=== PATIENT | male | born 1985 | race Two or more races ===

== ENCOUNTER 2020-04-15 17:30 | Emergency (ER) | payer SELFPAY ==
[~2020-04-15] VITALS: Ht 170.2 cm; Wt 77.6 kg
[2020-04-15 17:45] VITALS: BP 118/71
--- NOTE | 2020-04-15 17:53 | Emergency Room Report ---
History of Present Illness General Chief Complaint: Pain Source: Patient Present Illness HPI 34-year-old male with no significant past medical history here complaining bottom of both feet hurting after walking too much. Fungus blisters noted however do not appear to be infected. Patient requesting antibiotics. Refuses any bandage being applied at this time. Does not want to take any medication at this time. Reports that he will was cleaning socks and after he cleaned his feet here to get the prescription and go to pharmacy. Denies any tingling or numbness. Patient is neurovascularly intact. Has full range of motion. Has not taken medication for symptom relief. Allergies: Coded Allergies: No Known Allergies (Unverified , 04/15/20) COVID-19 Screening Contact w/high risk pt: No Experienced COVID-19 symptoms?: No COVID-19 Testing performed BLOCKMAN: No Patient History Past Medical History: see triage record Past Surgical History: unable to obtain Pertinent Family History: unable to obtain Reviewed Nursing Documentation: PMH: Agreed; PSxH: Agreed Nursing Documentation-PMH Past Medical History: No Stated History Review of Systems All Other Systems: negative except mentioned in HPI Physical Exam Vital Signs Date Time Temp Pulse Resp B/P (MAP) Pulse Ox O2 Delivery O2 Flow Rate FiO2 04/15/20 17:33 98.1 80 16 118/71 (87) 99 Room Air Sp02 EP Interpretation: reviewed, normal General Appearance: no apparent distress, alert, GCS 15, non-toxic Head: normocephalic, atraumatic Eyes: bilateral eye normal inspection, bilateral eye PERRL ENT: hearing grossly normal, normal pharynx, no angioedema, normal voice Neck: full range of motion, supple/symm/no masses Respiratory: chest non-tender, lungs clear, normal breath sounds, speaking full sentences Cardiovascular #1: regular rate, rhythm, no edema Cardiovascular #2: 2+ dorsalis pedis (R), 2+ dorsalis pedis (L) Gastrointestinal: normal bowel sounds, non tender, soft, non-distended, no guarding, no rebound Rectal: deferred Genitourinary: no CVA tenderness Musculoskeletal: back normal, other - blisters plantar side of both feet Neurologic: alert, motor strength/tone normal, oriented x3, sensory intact, responsive, speech normal Psychiatric: judgement/insight normal, memory normal, mood/affect normal, no suicidal/homicidal ideation Skin: other - blisters plantar side of both feet Lymphatic: no adenopathy Medical Decision Making PA Attestation All diagnosis and treatment plans were discussed and reviewed by my supervising physician Dr. Swartz Diagnostic Impression: Primary Impression: Blister of foot ER Course 34-year-old male with no significant past medical history here complaining bottom of both feet hurting after walking too much. Fungus blisters noted however do not appear to be infected. Patient requesting antibiotics. Refuses any bandage being applied at this time. Does not want to take any medication at this time. Reports that he will was cleaning socks and after he cleaned his feet here to get the prescription and go to pharmacy. Denies any tingling or numbness. Patient is neurovascularly intact. Has full range of motion. Has not taken medication for symptom relief. Ddx considered but are not limited to : Cellulitis, superficial infection, abscess Vital signs: are WNL, pt. is afebrile H&PE are most consistent with:non infected blisters foot ORDERS:keflex, motrin ED INTERVENTIONS: wound clean DISCHARGE: At this time pt. is stable for d/c to home. Will provide printed patient care instructions, and any necessary prescriptions. Care plan and follow up instructions have been discussed with the patient prior to discharge. Patient agreeable to treatment however left before the prescriptions were given to him. Patient was given food and water Last Vital Signs Date Time Temp Pulse Resp B/P (MAP) Pulse Ox O2 Delivery O2 Flow Rate FiO2 04/15/20 17:33 98.1 80 16 118/71 (87) 99 Room Air Disposition: HOME, SELF-CARE Condition: Stable Scripts Ibuprofen* (MOTRIN*) 600 Mg Tablet 600 MG ORAL Q6H PRN for For Pain, #30 TAB 0 Refills Prov: Justin Mak 04/15/20 Cephalexin* (KEFLEX*) 500 Mg Capsule 500 MG ORAL EVERY 12 HOURS for 7 Days, #14 CAP 0 Refills Prov: Justin Mak 04/15/20 Patient Instructions: Blisters Additional Instructions: Take medication as directed, follow with your primary care provider, if worsening symptoms return to the emergency room Justin Mak Apr 15, 2020 17:53
[2020-04-15] MEDS ORDERED: CEPHALEXIN500 MG ORAL (17:54)
[2020-04-15] MEDS ORDERED: IBUPROFEN600 M1 ORAL (17:54)
[2020-04-15] MEDS ORDERED: cefTRIAXone 1 GM in NS 55 ML IVPB ONE (18:00)
[2020-04-15 18:05] VITALS: BP 118/71
== END 2020-04-15 18:05 | disposition home or self-care (01) ==
LOC: EMR 17:50
DX: S90.822A Blister (nonthermal), left foot, initial encounter (principal); S90.821A Blister (nonthermal), right foot, initial encounter; X58.XXXA Exposure to other specified factors, initial encounter
CPT/HCPCS: 99282